=== PATIENT | male | born 2000 | race Hispanic/Latino ===

== ENCOUNTER 2020-12-01 04:54 | Emergency (ER) | payer OTHER ==
[~2020-12-01] VITALS: Ht 170.2 cm; Wt 94.5 kg
[2020-12-01 04:56] VITALS: BP 141/87
[2020-12-01] MEDS ORDERED: vitamin d PO (05:05)
[2020-12-01] MEDS ORDERED: LEXA1TAB PO (05:05)
--- NOTE | 2020-12-01 07:38 | REPVR ---
PROCEDURE INFORMATION: Exam: XR Left Knee Exam date and time: 12/01/2020 6:54 AM Age: 20 years old Clinical indication: Other: Pain/ decreased rom; Additional info: Pain/dec rom TECHNIQUE: Imaging protocol: XR Left knee. Views: 4 or more views. COMPARISON: No relevant prior studies available. FINDINGS: Bones/joints: Normal. Soft tissues: Normal. IMPRESSION: No acute findings. Electronically signed by: Zafar Benítez On 12/01/2020 07:38:31 AM
== END 2020-12-01 07:57 | disposition home or self-care (01) ==
LOC: M ED 04:54
DX: M25.562 Pain in left knee (principal); Z79.899 Other long term (current) drug therapy; Z77.098 Contact with and (suspected) exposure to other hazardous, chiefly nonmedicinal, chemicals